=== PATIENT | female | born 1980 | race Native Hawaiian/Other Pacific Islander ===

== ENCOUNTER → 2023-09-15 06:22 | Outpatient (REF) | payer OTHER, SELFPAY ==
[2023-09-15 07:52] LABS: HDL Cholesterol 63 mg/dl; LDL Cholesterol, Calculated 110 mg/dl; Total Cholesterol 199 mg/dl (50-199); Triglyceride 134 mg/dl (10-149); Very Low Density Lipoprotein 26 mg/dl (0-30)
[2023-09-15 09:22] LABS: Glycohemoglobin (HgbA1c) 7.6 % (4.0-5.6)
== END ==
LOC: CLINIC 06:22
PROVIDERS: ATTENDING PHYSICIAN Internal Medicine
DX: E11.9 Type 2 diabetes mellitus without complications (principal)
CPT/HCPCS: 36415; 80061; 83036

== ENCOUNTER → 2024-02-09 06:26 | Outpatient (REF) | payer OTHER, SELFPAY | LOC: REG 06:26 | PROVIDERS: ATTENDING PHYSICIAN Nurse Practitioner Adult Health | DX: E11.9 Type 2 diabetes mellitus without complications (principal) | CPT/HCPCS: 36415; 83036 ==

== ENCOUNTER → 2024-07-19 08:28 | Outpatient (REF) | payer OTHER, SELFPAY ==
[2024-07-19 10:15] LABS: Glycohemoglobin (HgbA1c) 7.5 % (4.0-5.6)
== END ==
LOC: CLINIC 08:28
PROVIDERS: ATTENDING PHYSICIAN Internal Medicine
DX: E11.9 Type 2 diabetes mellitus without complications (principal)
CPT/HCPCS: 36415; 83036

== ENCOUNTER → 2024-10-06 06:32 | Outpatient (REF) | payer OTHER, SELFPAY | LOC: HWWDC 06:32 | PROVIDERS: ATTENDING PHYSICIAN Internal Medicine | DX: Z12.31 Encounter for screening mammogram for malignant neoplasm of breast (principal) | CPT/HCPCS: 77063; 77067 ==

== ENCOUNTER → 2024-11-21 06:38 | Outpatient (REF) | payer OTHER, SELFPAY ==
[2024-11-21 10:19] LABS: Glycohemoglobin (HgbA1c) 7.8 % (4.0-5.6)
== END ==
LOC: REG 06:38
PROVIDERS: ATTENDING PHYSICIAN Internal Medicine
DX: E11.9 Type 2 diabetes mellitus without complications (principal)
CPT/HCPCS: 36415; 83036

== ENCOUNTER → 2025-02-21 06:25 | Outpatient (REF) | payer OTHER, SELFPAY ==
[2025-02-21 10:48] LABS: Glycohemoglobin (HgbA1c) 7.9 % (4.0-5.6)
== END ==
LOC: CLINIC 06:25
PROVIDERS: ATTENDING PHYSICIAN Internal Medicine
DX: E11.9 Type 2 diabetes mellitus without complications (principal)
CPT/HCPCS: 36415; 83036